=== PATIENT | female | born 1960 | race African-American/Black ===

== ENCOUNTER 2017-05-14 12:06 | Emergency (ER) | payer MEDICAID ==
[2017-05-14 12:14] VITALS: BMI 25.8
--- NOTE | 2017-05-14 12:41 | DR.DIZZY ---
HPI - Time seen Time seen: 12:40 - PCP Primary Care Physician: CECILIO - HPI Comment HPI Comment: GETTING WORSE. MISS PM MED LAST NIGHT. NO FEVER OR URI SYMTOMS. DIZZY ALSO. HAVING SEVERE HEADACHE. NO N/V. PATIENT IS HAVING SUBSTERNAL CHEST PRESURE THAT IS INTERMITTENT. NO WEAKNESS, - Complaint Chief Complaint Doctor Comments: ELEVATED BP, LEFT ARM NUMBNESS TIMES TWO DAY AND CHEST PAIN. Chief Complaint:: PT STATES SHE HAS BEEN HAVING LEFT ARM NUMBESS AND TIGLING FOR THE LAST 2 DAYS AND SLIGHT INTERMITTANT PAINS TO THE CHEST. Self Treatment fo Chief Complaint: PT DENIES ANY PAIN OR SOB AT THIS TIME, - Nurses Notes Reviewed Nurses Notes Review: Yes - Source History Provided: Patient - Mode of Arrival Mode of Arrival: Ambulatory - Timing Onset of Chief Complaint: 05/12/17 Came on: Suddenly - Duration Duration: Constant Duration: Days - Location of Weakness Weakness Location: Left, Arm - Context Onset: At rest Does pt take pot. toxic medication?: No History of: None Stroke Symptoms: Dizziness - Severity Severity: Normal activity level - Modifying factors Worsens: Nothing - Associated signs and symptoms Associated Signs and Symptoms: Numb PMH - PMH Past Medical History: Yes Past Medical History: Hypertension Past Medical History Comment: LUPUS Past Surgical History: Yes Surgical History: - Family History History of Family Medical Conditions: No - Social History Does patient currently use any type of tobacco product: No Have you used tobacco products in the last 12 months: No Type of Tobacco Use: None Does any household member use tobacco: No Alcohol Use: None Do you use any recreational Drugs:: No Lives With: Family Lives Where: Home - infectious screening In the last 2 months have you had wt loss of >10#?: NO Have you had fever, night sweats or hemotysis?: No Have you traveled outside the country in the last 6 months?: No Isolation: Standard ROS - Review of Systems Constitutional: No Symptoms Reported. negative: Chills, Fever, Weakness, Fatigue Eyes: No Symptoms Reported. negative: Eye Pain, Discharge ENTM: No Symptoms Reported. negative: Ear Pain, Nose Discharge, Nose Congestion , Throat Pain Respiratoy: Non-Productive Cough, Short of Breath. negative: Wheezing, Hemoptysis Cardiovascular: Chest Pain. negative: Edema Gastrointestinal/Abdominal: No Symptoms Reported Genitourinary: No Symptoms Reported Neurological: Headache, Numbness, Paresthesia, Dizziness. negative: Weakness Musculoskeletal: No Symptoms Reported Integumentary: No Symptoms Reported Hematologic/Lymphatic: No Symptoms Reported Endocrine: No Symptoms Reported All Other Systems: Reviewed and Negative PE - Vital Signs Vitals: Temperature 97.7 F Pulse Rate 80 Respiratory Rate 20 Blood Pressure [Left Arm] 145/70 Blood Pressure 182/84 O2 Sat by Pulse Oximetry 100 - General Limitations: No Limitations General Appearance: Alert - Head Head Exam: Normal Inspection - Eyes Eye exam: Normal Appearance, PERRL, EOMI. negative: Scleral Icterus, Conjunctival Injection Pupils: Regular, Round: Bilateral, Reactive: Bilateral Sclera/Conjunctival: Normal Inspection: Bilateral - ENT ENT Exam: Normal Oropharynx, Normal External Ear Exam, TM's Normal Bilaterally - Neck Neck Exam: Trachea Midline - Chest Chest Inspection: Symmetric Chest Wall Rise - Respiratory Respiratory Exam: Normal Lung Sounds Bilat Respiratory Exam: Bilateral Rhonchi, Lower Rhonchi - Cardiovascular Cardiovascular Exam: Regular Rate, Normal Rhythm, Normal Heart Sounds - Abdominal Exam Abdominal Exam: Normal Bowel Sounds, Soft. negative: Tenderness - Rectal Rectal Exam: Deferred - Extremeties Extremities Exam: Normal Inspection. negative: Tenderness, Edema, Joint Swelling, Calf Tenderness - Back Back Exam: Normal Inspection - Neurologic Neurological Exam: Alert, Oriented X3, CN II-XII Intact, Normal Gait, Reflexes Normal. negative: Motor Sensory Deficit Patient Oriented To: Person, Place, Time Speech: Fluid Speech Cranial Nerve Exam: EOM Function (II, III, IV, ): Normal, Facial Sensation (V) : Normal, Facial Palsy (VII): Normal, Gag reflex (XI): Normal, Spinal Accessory Function (XI): Normal, Tongue Deviation: Normal Cerebellar Function: Normal Gait Motor Strength - LUE: 5/5 Motor Strength - RUE: 5/5 Motor Strength - LLE: 5/5 Motor Strength - RLE: 5/5 Upper Motor Neuron Exam: Babinski Sign: Normal DTR: achilles tendon (L): 4+, achilles tendon (R): 4+, brachioradialis (L): 4+, brachioradialis (R): 4+, Patellar (L): 4+, patellar (R): 4+ - Psychiatric Psychiatric Exam: Normal Affect, Normal Mood - Skin Skin Exam: Normal Color [facility] - Differential Diagnosis Differential Diagnosis: CVA, Dysrhythmia, Electrolyte disorder, Myocardial Infarction, TIA Course - Treatment Treatment: SEE ORDERS. - Education/Counseling Education/Counseling: Patient, Education Educated On: Treatment, Diagnosis, Needs for Follow Up ROR - Labs Reviewed Laboratory Results Reviewed?: Yes Result Diagrams: 05/14/17 12:46 05/14/17 12:46 Laboratory: WBC 3.3 X10^3/uL (3.6-10.0) L 05/14/17 12:46 RBC 3.93 X10^6/uL (3.5-5.4) 05/14/17 12:46 Hgb 11.6 g/dL (12.0-16.0) L 05/14/17 12:46 Hct 34.7 % (36.0-47.0) L 05/14/17 12:46 MCV 88.4 fL (80.0-100.0) 05/14/17 12:46 MCH 29.5 pg (27.0-34.0) 05/14/17 12:46 MCHC 33.3 g/dL (33.0-35.0) 05/14/17 12:46 RDW 15.6 % (11.6-16.5) 05/14/17 12:46 Plt Count 158 X10^3/uL (150.0-450.0) 05/14/17 12:46 MPV 9.6 fL (7.4-11.0) 05/14/17 12:46 Neut % 49.8 % (42.0-75.0) 05/14/17 12:46 Lymph % 33.7 % (21.0-51.0) 05/14/17 12:46 [place] % 12.1 % (0.0-13.0) 05/14/17 12:46 Eos % 3.8 % (0.9-2.9) H 05/14/17 12:46 Baso % 0.6 % (0.2-1.0) 05/14/17 12:46 Neut # 1.7 x10^3/uL (2.2-4.8) L 05/14/17 12:46 Lymph # 1.1 X10^3/uL (1.3-2.9) L 05/14/17 12:46 [place] # 0.4 x10^3/uL (0.3-0.8) 05/14/17 12:46 Eos # 0.1 x10^3/uL (0.0-0.2) 05/14/17 12:46 Baso # 0.0 X10^3/uL (0.0-0.1) 05/14/17 12:46 Absolute Nucleated RBC 0.0 /100WBC 05/14/17 12:46 Sodium 136 mmol/L (136-145) 05/14/17 12:46 Corrected Sodium TNP 05/14/17 12:46 Potassium 3.6 mmol/L (3.5-5.1) 05/14/17 12:46 Chloride 103 mmol/L (98-107) 05/14/17 12:46 Carbon Dioxide 27.4 mmol/L (21-32) 05/14/17 12:46 BUN 11 mg/dL (7-18) 05/14/17 12:46 Creatinine 0.77 mg/dL (0.55-1.02) 05/14/17 12:46 Est GFR (MDRD) Af Amer > 60 (>60) 05/14/17 12:46 Est GFR (MDRD) Non-Af > 60 (>60) 05/14/17 12:46 Glucose 89 mg/dL (65-99) 05/14/17 12:46 Calcium 8.4 mg/dL (8.5-10.1) L 05/14/17 12:46 Corrected Calcium 9.3 mg/dL (8.5-10.1) 05/14/17 12:46 Total Bilirubin 0.30 mg/dL (0.2-1.0) 05/14/17 12:46 AST 15 Units/L (15-37) 05/14/17 12:46 ALT 14 Units/L (12-78) 05/14/17 12:46 Alkaline Phosphatase 100 Units/L (46-116) 05/14/17 12:46 Creatine Kinase 99 Units/L (26-192) 05/14/17 15:44 CK-MB (CK-2) < 1.0 ng/mL (0-4.0) 05/14/17 15:44 CK/CKMB % Calc 1.0 % (<4) 05/14/17 15:44 Troponin I 0.03 ng/mL (0-1.5) 05/14/17 15:44 Total Protein 8.7 g/dL (6.4-8.2) H 05/14/17 12:46 Albumin 2.9 g/dL (3.4-5.0) L 05/14/17 12:46 Globulin 5.8 g/dL (2.5-4.5) H 05/14/17 12:46 Albumin/Globulin Ratio 0.5 Ratio (1.1-2.1) L 05/14/17 12:46 - XRAY XRAY Interpreted by: Radiologist XRAY Findings: REPORT DISCUSS WITH PATIENT. - EKG Rhythm: NSR (EKG NOTED) - Diagnosis Discharge Problem: Left upper extremity numbness Chest pain Qualifiers: Chest pain type: precordial pain Qualified Code(s): R07.2 - Precordial pain Hypertension Qualifiers: Hypertension type: essential hypertension Qualified Code(s): I10 - Essential ( primary) hypertension - Discharge Plan Condition: Stable Prescriptions: Gabapentin [Neurontin Cap 100 mg] 100 mg PO BID #60 cap Meloxicam [Mobic Tab 15 mg] 15 mg PO DAILY #30 tab - Follow ups/Referrals Follow ups/Referrals: NFD,None [Primary Care Provider] - 3 days TIGRE MAGAÑA [STAFF PHYSICIAN] - 2 days - Instructions Instructions: Paresthesia, Hypertension, [id number], Chest Pain Observation Additional Instructions: RETURN TO ED IF WORSE.
[2017-05-14 12:58] LABS: BASOPHILS % (AUTO) 0.6 % (0.2-1.0); EOSINOPHILS # (AUTO) 0.1 x10^3/uL (0.0-0.2); EOSINOPHILS % (AUTO) 3.8 % (0.9-2.9); HEMATOCRIT 34.7 % (36.0-47.0); HEMOGLOBIN 11.6 g/dL (12.0-16.0); LYMPHOCYTES # (AUTO) 1.1 X10^3/uL (1.3-2.9); LYMPHOCYTES % (AUTO) 33.7 % (21.0-51.0); MEAN CORPUSCULAR HEMOGLOBIN 29.5 pg (27.0-34.0); MEAN CORPUSCULAR HGB CONC 33.3 g/dL (33.0-35.0); MEAN CORPUSCULAR VOLUME 88.4 fL (80.0-100.0); MEAN PLATELET VOLUME 9.6 fL (7.4-11.0); MONOCYTES # (AUTO) 0.4 x10^3/uL (0.3-0.8); MONOCYTES % (AUTO) 12.1 % (0.0-13.0); NEUTROPHILS # (AUTO) 1.7 x10^3/uL (2.2-4.8); NEUTROPHILS % (AUTO) 49.8 % (42.0-75.0); PLATELET COUNT 158 X10^3/uL (150.0-450.0); RED BLOOD COUNT 3.93 X10^6/uL (3.5-5.4); RED CELL DISTRIBUTION WIDTH 15.6 % (11.6-16.5); WHITE BLOOD COUNT 3.3 X10^3/uL (3.6-10.0)
[2017-05-14 13:20] LABS: BLOOD UREA NITROGEN 11 mg/dL (7-18); CALCIUM 8.4 mg/dL (8.5-10.1); CARBON DIOXIDE 27.4 mmol/L (21-32); CHLORIDE 103 mmol/L (98-107); CREATININE 0.77 mg/dL (0.55-1.02); SODIUM 136 mmol/L (136-145); TROPONIN I 0.03 ng/mL (0-1.5); eGFR BLACK RACES > 60 (>60); eGFR NON BLACK RACES > 60 (>60)
--- NOTE | 2017-05-14 13:20 | RAD ---
HISTORY: Chest pain. Study: AP portable chest Comparison: None Findings: Very minimal pulmonary vascular congestion is noted. Moderate to moderately severe cardiomegaly is p resent. No acute bony abnormalities are identified. A hair pin overlies the right side of the chest , most likely extrinsic to the patient. IMPRESSION: 1. Moderate to moderately severe cardiomegaly with very minimal pulmonary vascular congestion. Reported By:
[2017-05-14 13:22] LABS: ALANINE AMINOTRANSFERASE 14 Units/L (12-78); ALBUMIN 2.9 g/dL (3.4-5.0); ALKALINE PHOSPHATASE 100 Units/L (46-116); ASPARTATE AMINO TRANSFERASE 15 Units/L (15-37); COR CA(FOR HYPOALB) 9.3 mg/dL (8.5-10.1); CREATINE KINASE 100 Units/L (26-192); CREATINE KINASE MB < 1.0 ng/mL (0-4.0); TOTAL PROTEIN 8.7 g/dL (6.4-8.2)
--- NOTE | 2017-05-14 13:23 | CT ---
Indication: Mental status changes after head trauma. Exam: CT head without contrast. Technique: Routine transaxial images were obtained through the brain without contrast. Findings: The ventricles are normal. No intracranial hemorrhage or edema is seen. There is no extra-a xial fluid collection or mass. The midline structures are unremarkable. No fracture is seen. There is mucosal thickening throughout the ethmoid, maxillary and sphenoid sinuses. Impression: No acute intracranial abnormality seen . Chronic sinusitis. Reported By:
[2017-05-14] MEDS ORDERED: TORADOL 60 MG VIAL IM ONE (14:42)
[2017-05-14] MEDS ORDERED: TORADOL 60 MG VIAL ONE (14:43)
[2017-05-14] MEDS ORDERED: CATAPRES TAB 0.2 MG PO ONE (15:44)
[2017-05-14] MEDS ORDERED: CATAPRES TAB 0.2 MG ONE (15:50)
[2017-05-14 16:50] LABS: CREATINE KINASE 99 Units/L (26-192); CREATINE KINASE MB < 1.0 ng/mL (0-4.0); TROPONIN I 0.03 ng/mL (0-1.5)
[2017-05-14] MEDS ORDERED: NORVASC TAB 5 MG ONE (16:57)
[2017-05-14 16:59] VITALS: BP 145/70
[2017-05-14] MEDS ORDERED: NORVASC TAB 10 MG PO SCH (17:00)
== END 2017-05-14 17:14 | disposition home or self-care (01) ==
LOC: ER 12:21
DX: R07.2 Precordial pain (principal); R20.2 Paresthesia of skin; I10 Essential (primary) hypertension
CPT/HCPCS: 36415; 70450; 71045; 80053; 82550; 82553; 84484; 85025; 93005; 93010; 96372; 99282; 99283; J1885

== ENCOUNTER 2022-10-29 17:34 | Observation (INO) ==
--- NOTE | 2022-10-29 18:03 | DR.HTN ---
HPI Time Seen Time Seen by Provider: 10/29/22 17:59 Primary Care Physician Primary Care Physician: JOSE WILSON HPI Comment HPI Comment: PATIENT IS 61YR OLD FEMALE IN ER WITH DIZZINESS, NOT FEELING WELL. BP RUNNING HIGH. MEDS ADJUSTED BUT STILL RUNNING HIGH. TOOK HOME MEDICATIONS AND STILL HAVE ELEVATED BP. HAVING HEADACHE AND DIZZY. PCP ADJUSTED BP MEDICATIONS BUT HAVE NOT IMPROVE BP. Complaints Chief Complaint Doctors Comments: ELEVATED BP, HEADACHE AND DIZZY THAT IS WORSE TONIGHT. Chief Complaint:: PT STATES SHE HAS BEEN DIZZY , AND NOT FEELING WELL AND HE PCP HAS CHANGED HER B/P MEDS 2 WEEKS AGO AND IT STILL KEEPS GETTING HIGHER ,,BR 239/123 AT HOME ( PT TOOK HE BP MEDS THIS AM SHE IS NOT SURE OF THE NAME ).BR Self Treatment fo Chief Complaint: REGULAR MEDS COVID-19 Coronavirus risk:travel/contact w/high risk person: No Has patient experienced Coronavirus symptoms: No Reviewed Nurses Notes Reviewed: Yes Source History Provided: Patient Mode of Arrival Mode of Arrival: Ambulatory Timing Onset of Chief Complaint: 10/15/22 Context Treatment of HTN Prior to Arrival: Taking meds as prescribed Associated Signs and Symptoms HTN Associated Signs and Symptoms: Dizziness PMH PMH Past Medical History: Yes Past Medical History: Hypertension Past Medical History Comment: LUPUS , RA Past Surgical History: No Surgical History: Family History History of Family Medical Conditions: Yes Family Medical History: Diabetes Mellitus and Hypertension Family Medical History Comment: RENAL FAIURE Social History Does patient currently use any type of tobacco product: No Have you used tobacco products in the last 12 months: No Type of Tobacco Use: None Does any household member use tobacco: No Alcohol Use: Occasionally Do you use any recreational Drugs:: No Lives With: Alone Lives Where: Home Infectious screening In the last 2 months have you had wt loss of >10#?: NO Have you had fever, night sweats or hemotysis?: No Have you traveled outside the country in the last 6 months?: No Isolation: Standard ROS Review of Systems Constitutional: No Symptoms Reported and Fatigue; negative Fever Eyes: No Symptoms Reported; negative Blurred Vision ENTM: No Symptoms Reported; negative Nose Discharge or Nose Congestion Respiratoy: No Symptoms Reported; negative Moist Cough, Short of Breath or Wheezing Cardiovascular: No Symptoms Reported; negative Chest Pain or Edema Gastrointestinal/Abdominal: negative Abdominal Pain, Nausea or Vomiting Genitourinary: No Symptoms Reported; negative Dysuria Neurological: Headache and Dizziness Musculoskeletal: No Symptoms Reported; negative Muscle Pain Integumentary: No Symptoms Reported; negative Rash or Juandice Hematologic/Lymphatic: No Symptoms Reported; negative Easy Bruising Endocrine: No Symptoms Reported; negative Increased Thirst or Increased Urine Psychiatric: No Symptoms Reported All Other Systems: Reviewed and Negative PE Vital Signs Vitals: Vital Signs Temperature 97.8 F Temperature 98.6 F Pulse Rate 61 Pulse Rate 61 Pulse Rate 60 Pulse Rate 60 Pulse Rate 61 Pulse Rate 61 Pulse Rate 59 Pulse Rate 61 Pulse Rate 61 Pulse Rate 60 Pulse Rate 59 Pulse Rate 62 Pulse Rate 61 Pulse Rate 64 Pulse Rate 64 Pulse Rate 67 Pulse Rate 71 Pulse Rate 71 Pulse Rate 69 Pulse Rate 72 Respiratory Rate 18 Respiratory Rate 22 Blood Pressure [Left Arm] 177/84 Blood Pressure 171/90 Blood Pressure 182/83 Blood Pressure 177/84 Blood Pressure 176/84 Blood Pressure 177/84 Blood Pressure 187/88 Blood Pressure 170/78 Blood Pressure 188/79 Blood Pressure 165/77 Blood Pressure 179/79 Blood Pressure 165/78 Blood Pressure 166/80 Blood Pressure 176/79 Blood Pressure 167/81 Blood Pressure 167/81 Blood Pressure 178/85 Blood Pressure 178/85 Blood Pressure 174/84 Blood Pressure 203/90 Blood Pressure 204/84 Blood Pressure 180/70 Blood Pressure 189/84 Blood Pressure 190/66 Blood Pressure 198/87 Blood Pressure 213/92 Blood Pressure 187/87 Blood Pressure 183/85 Blood Pressure 200/87 Blood Pressure 167/81 Blood Pressure 169/76 Blood Pressure 185/87 Blood Pressure 198/93 O2 Sat by Pulse Oximetry 99 O2 Sat by Pulse Oximetry 84 O2 Sat by Pulse Oximetry 100 O2 Sat by Pulse Oximetry 100 O2 Sat by Pulse Oximetry 100 O2 Sat by Pulse Oximetry 100 O2 Sat by Pulse Oximetry 98 O2 Sat by Pulse Oximetry 98 O2 Sat by Pulse Oximetry 100 O2 Sat by Pulse Oximetry 99 O2 Sat by Pulse Oximetry 98 O2 Sat by Pulse Oximetry 99 O2 Sat by Pulse Oximetry 91 O2 Sat by Pulse Oximetry 94 O2 Sat by Pulse Oximetry 67 O2 Sat by Pulse Oximetry 100 O2 Sat by Pulse Oximetry 99 O2 Sat by Pulse Oximetry 99 O2 Sat by Pulse Oximetry 99 O2 Sat by Pulse Oximetry 100 O2 Sat by Pulse Oximetry 98 O2 Sat by Pulse Oximetry 100 General Limitations: No Limitations General Appearance: Alert and In No Apparent Distress Head Head Exam: Normal Inspection and Atraumatic Eyes Eye exam: Normal Appearance, PERRL and EOMI; negative Scleral Icterus or Conjunctival Injection Pupils: Regular, Round: Bilateral and Reactive: Bilateral Sclera/Conjunctival: Normal Inspection: Bilateral ENT ENT Exam: Normal Exam, Normal Oropharynx, Normal External Ear Exam and TM's Normal Bilaterally Neck Neck Exam: Normal Inspection and Trachea Midline; negative Tenderness Chest Chest Inspection: Normal Inspection and Symmetric Chest Wall Rise; negative Tenderness Respiratory Respiratory Exam: Normal Lung Sounds Bilat; negative Accessory Muscle Use, Chest Wall Tenderness or Respiratory Distress Respiratory Exam: Bilateral: Clear to Auscultation Cardiovascular Cardiovascular Exam: Regular Rate, Normal Rhythm and Normal Heart Sounds; ne gative Systolic Murmur or Diastolic Murmur Abdominal Exam Abdominal Exam: Normal Inspection, Normal Bowel Sounds and Soft; negative Tenderness Extremities Extremities Exam: Normal Inspection, Tenderness and Normal Capillary Refill; negative Edema Back Back Exam: Normal Inspection; negative (R) CVA Tenderness or (L) CVA Tenderness Neurologic Neurological Exam: Alert and Oriented X3; negative Motor Sensory Deficit Patient Oriented To: Person, Place and Time Speech: Fluid Speech Cranial Nerve Exam: EOM Function (II, III, IV, ): Normal, Facial Sensation (V): Normal, Facial Palsy (VII): Normal, Gag reflex (XI): Normal, Spinal A ccessory Function (XI): Normal and Tongue Deviation: Normal Motor Strength - LUE: 5/5 Motor Strength - RUE: 5/5 Motor Strength - LLE: 5/5 Motor Strength - RLE: 5/5 Upper Motor Neuron Exam: Babinski Sign: Normal Psychiatric Psychiatric Exam: Normal Affect Skin Skin Exam: Intact MDM Differential Diagnosis Differential Diagnosis: Hyertension, essential (HEADACHE, DIZZINESS.) COURSE Treatment Treatment: SEE ORDERS DONE WHILE PATIENT WAS IN ER. . SHE WAS GIVEN CLONIDINE 0.2MG PO, METOPROLOL 25MG PO AND HYDRALAZINE 25MG PO WHILE IN ER. LABS AND EKG REPORT DISCUSSED WITH PATIENT. BP STILL ELEVATED. SHE WAS ADMITTED TO HOSPITAL FOR FURTHER MANAGEMENT. Consultation Consultation Comments: DISCUSSED PATIENT WITH DR. PANTOJA. HE WILL ADMIT PATIENT. Education/Counseling Education/Counseling: Patient Educated On: Diagnosis ROR Labs Reviewed Laboratory Results Reviewed?: Yes Result Diagrams: 10/30/22 05:06 10/30/22 05:06 Laboratory: WBC 4.5 X10^3/uL (3.6-10.0) 10/29/22 18:25 RBC 4.02 X10^6/uL (3.5-5.4) 10/29/22 18:25 Hgb 12.3 g/dL (12.0-16.0) 10/29/22 18:25 Hct 36.6 % (36.0-47.0) 10/29/22 18: MCV 91.0 fL (80.0-100.0) 10/29/22 18:25 MCH 30.7 pg (27.0-34.0) 10/29/22 18: MCHC 33.7 g/dL (33.0-35.0) 10/29/22 18: RDW 14.8 % (11.6-16.5) 10/29/22 18: Plt Count 173 X10^3/uL (150.0-450.0) 10/29/22 18: MPV 9.3 fL (7.4-11.0) 10/29/22 18:25 Neut % (Auto) 63.5 % (42.0-75.0) 10/29/22 18:25 Lymph % (Auto) 24.1 % (21.0-51.0) 10/29/22 18:25 [place] % (Auto) 7.8 % (0.0-13.0) 10/29/22 18:25 Eos % (Auto) 3.8 % (0.9-2.9) H 10/29/22 18:25 Baso % (Auto) 0.8 % (0.2-1.0) 10/29/22 18:25 Neut # (Auto) 2.9 x10^3/uL (2.2-4.8) 10/29/22 18:25 Lymph # (Auto) 1.1 X10^3/uL (1.3-2.9) L 10/29/22 18:25 [place] # (Auto) 0.4 x10^3/uL (0.3-0.8) 10/29/22 18:25 Eos # (Auto) 0.2 x10^3/uL (0.0-0.2) 10/29/22 18:25 Baso # (Auto) 0.0 X10^3/uL (0.0-0.1) 10/29/22 18:25 Absolute Nucleated RBC 0.1 /100WBC 10/29/22 18:25 Sodium 141 mmol/L (136-145) 10/29/22 18:25 Corrected Sodium TNP 10/29/22 18:25 Potassium 3.6 mmol/L (3.5-5.1) 10/29/22 18:25 Chloride 103 mmol/L (98-107) 10/29/22 18:25 Carbon Dioxide 31.5 mmol/L (21-32) 10/29/22 18:25 BUN 18 mg/dL (7-18) 10/29/22 18:25 Creatinine 1.29 mg/dL (0.55-1.02) H 10/29/22 18:25 Est GFR (MDRD) Af Amer 54 (>60) L 10/29/22 18:25 Est GFR (MDRD) Non-Af 45 (>60) L 10/29/22 18:25 Glucose 86 mg/dL (65-99) 10/29/22 18:25 Calcium 9.1 mg/dL (8.5-10.1) 10/29/22 18:25 Corrected Calcium 10.0 mg/dL (8.5-10.1) 10/29/22 18:25 Total Bilirubin 0.20 mg/dL (0.2-1.0) 10/29/22 18:25 AST 16 Units/L (15-37) 10/29/22 18:25 ALT 13 Units/L (12-78) 10/29/22 18:25 Alkaline Phosphatase 110 Units/L (46-116) 10/29/22 18:25 Creatine Kinase 112 Units/L (26-192) 10/29/22 18:25 Troponin I High Sens 20.4 ng/L (4.0-60.0) 10/29/22 18:25 Total Protein 8.1 g/dL (6.4-8.2) 10/29/22 18:25 Albumin 2.9 g/dL (3.4-5.0) L 10/29/22 18:25 Globulin 5.2 g/dL (2.5-4.5) H 10/29/22 18:25 Albumin/Globulin Ratio 0.6 Ratio (1.1-2.1) L 10/29/22 18:25 Specimen Type Clean catch urine 10/29/22 18:30 Urine Color Yellow (YELLOW) 10/29/22 18:30 Urine Appearance Clear (CLEAR) 10/29/22 18:30 Urine pH 6.5 (5.0 - 8.0) 10/29/22 18:30 Ur Specific [place] 1.015 (1.000-1.030) 10/29/22 18:30 Urine Protein 4+ (NEGATIVE) 10/29/22 18:30 Urine Glucose (UA) Negative (NEGATIVE) 10/29/22 18:30 Urine Ketones Negative (NEGATIVE) 10/29/22 18:30 Urine Blood Negative (NEGATIVE) 10/29/22 18: Urine Nitrite Negative (NEGATIVE) 10/29/22 18: Urine Bilirubin Negative (NEGATIVE) 10/29/22 18:30 Urine Urobilinogen Normal (NORMAL) 10/29/22 18:30 Ur Leukocyte Esterase Negative (NEGATIVE) 10/29/22 18:30 Urine RBC None seen /HPF (0-3) 10/29/22 18:30 Urine WBC 0-2 /HPF (0-5) 10/29/22 18:30 Ur Squamous Epith Cells Rare /HPF (NEGATIVE) 10/29/22 18:30 Urine Bacteria Negative /HPF (NEGATIVE) 10/29/22 18:30 Hyaline Casts Rare /LPF (NEGATIVE) 10/29/22 18:30 Ur Culture Indicated? No/not indicated 10/29/22 18:30 Urine Opiates Screen Negative (NEG=<300) 10/29/22 18:30 Urine Methadone Screen Negative (NEG=<300) 10/29/22 18:30 Ur Barbiturates Screen Negative (NEG=<200) 10/29/22 18:30 Ur Phencyclidine Scrn Negative (NEG=<25) 10/29/22 18:30 Ur Amphetamines Screen Negative (NEG=<1000) 10/29/22 18:30 U Benzodiazepines Scrn Negative (NEG=<200) 10/29/22 18:30 Urine Cocaine Screen Negative (NEG=<300) 10/29/22 18:30 U Marijuana (THC) Screen Positive (NEG=<50) A 10/29/22 18:30 EKG Rate: 61 [place]: Normal Rhythm: NSR and PVCs Block: None Hypertrophy: None ST: Nonsp Opioid Opioid Risk Tool Total: 0 Total Score Risk Category: Low Risk Copyright: Chito GERMAN predicting aberrant behaviors Discharge Plan Diagnosis Discharge Problem: Hypertension, Dizziness, Headache Discharge Plan Patient Disposition: 09 ADMITTED INPATIENT Condition: Stable Orders to Discharge Patient Discharge Orders: Discharge (Routine); Ordered 10/30/22 Ordered By: Akira Pantoja
--- NOTE | 2022-10-29 18:32 | EKG ---
Test Reason : HTN Blood Pressure : */* mmHG Vent. Rate : 61 BPM Atrial Rate : 61 BPM P-R Int : 182 ms QRS Dur : 104 ms QT Int : 438 ms P-R-T Axes : 40 -24 79 degrees QTc Int : 440 ms Normal sinus rhythm Left ventricular hypertrophy with repolarization abnormality ( R in aVL , [place] product ) Abnormal ECG No previous ECGs available Confirmed by Hong Warren ([id number]) on 10/30/2022 7:56:11 AM Referred By: Confirmed By: Hong Warren
[2022-10-29 18:34] LABS: BASOPHILS % (AUTO) 0.8 % (0.2-1.0); EOSINOPHILS # (AUTO) 0.2 x10^3/uL (0.0-0.2); EOSINOPHILS % (AUTO) 3.8 % (0.9-2.9); HEMATOCRIT 36.6 % (36.0-47.0); HEMOGLOBIN 12.3 g/dL (12.0-16.0); LYMPHOCYTES # (AUTO) 1.1 X10^3/uL (1.3-2.9); LYMPHOCYTES % (AUTO) 24.1 % (21.0-51.0); MEAN CORPUSCULAR HEMOGLOBIN 30.7 pg (27.0-34.0); MEAN CORPUSCULAR HGB CONC 33.7 g/dL (33.0-35.0); MEAN PLATELET VOLUME 9.3 fL (7.4-11.0); MONOCYTES # (AUTO) 0.4 x10^3/uL (0.3-0.8); MONOCYTES % (AUTO) 7.8 % (0.0-13.0); NEUTROPHILS # (AUTO) 2.9 x10^3/uL (2.2-4.8); NEUTROPHILS % (AUTO) 63.5 % (42.0-75.0); PLATELET COUNT 173 X10^3/uL (150.0-450.0); RED BLOOD COUNT 4.02 X10^6/uL (3.5-5.4); RED CELL DISTRIBUTION WIDTH 14.8 % (11.6-16.5); WHITE BLOOD COUNT 4.5 X10^3/uL (3.6-10.0)
[2022-10-29 18:38] LABS: BILIRUBIN,URINE NEGATIVE (NEGATIVE); BLOOD/HEMOGLOBIN,URINE NEGATIVE (NEGATIVE); GLUCOSE, URINE NEGATIVE (NEGATIVE); KETONES,URINE NEGATIVE (NEGATIVE); LEUKOCYTE ESTERASE ,URINE NEGATIVE (NEGATIVE); NITRITES,URINE NEGATIVE (NEGATIVE); PH,URINE 6.5 (5.0 - 8.0); PROTEIN,URINE 4+ (NEGATIVE); UROBILINOGEN,URINE NORMAL (NORMAL)
[2022-10-29 18:44] LABS: APPEARANCE,URINE CLEAR (CLEAR); BACTERIA,URINE NEGATIVE /HPF (NEGATIVE); COLOR,URINE YELLOW (YELLOW); HYALINE CASTS, URINE RARE /LPF (NEGATIVE); RBC,URINE NONE SEEN /HPF (0-3); SQUAMOUS EPITHELIAL CELL,UR RARE /HPF (NEGATIVE)
[2022-10-29 18:51] LABS: ALANINE AMINOTRANSFERASE 13 Units/L (12-78); ALBUMIN 2.9 g/dL (3.4-5.0); ALKALINE PHOSPHATASE 110 Units/L (46-116); ASPARTATE AMINO TRANSFERASE 16 Units/L (15-37); BLOOD UREA NITROGEN 18 mg/dL (7-18); CALCIUM 9.1 mg/dL (8.5-10.1); CARBON DIOXIDE 31.5 mmol/L (21-32); CHLORIDE 103 mmol/L (98-107); CREATINE KINASE 112 Units/L (26-192); CREATININE 1.29 mg/dL (0.55-1.02); GLUCOSE 86 mg/dL (65-99); POTASSIUM 3.6 mmol/L (3.5-5.1); SODIUM 141 mmol/L (136-145); TOTAL PROTEIN 8.1 g/dL (6.4-8.2); eGFR NON BLACK RACES 45 (>60)
[2022-10-29] MEDS ORDERED: CATAPRES TAB 0.2 MG PO ONE (18:53)
[2022-10-29] MEDS ORDERED: CATAPRES TAB 0.2 MG ONE (18:53)
[2022-10-29] MEDS ORDERED: LOPRESSOR TAB 25 MG PO ONE (21:01)
[2022-10-29] MEDS ORDERED: APRESOLINE TAB 25 MG PO ONE (21:01)
[2022-10-29] MEDS ORDERED: LOPRESSOR TAB 25 MG ONE (21:03)
[2022-10-29] MEDS ORDERED: CATAPRES-TTS-2 TD ONE (21:52)
[2022-10-29] MEDS ORDERED: CATAPRES-TTS-2 TD SCH (22:00)
[2022-10-29 22:23] VITALS: RESP 18
[2022-10-29 23:14] VITALS: BMI 31.1
[2022-10-30 05:34] LABS: EOSINOPHILS # (AUTO) 0.2 x10^3/uL (0.0-0.2); EOSINOPHILS % (AUTO) 3.8 % (0.9-2.9); HEMATOCRIT 34.6 % (36.0-47.0); HEMOGLOBIN 11.7 g/dL (12.0-16.0); LYMPHOCYTES # (AUTO) 1.4 X10^3/uL (1.3-2.9); MEAN CORPUSCULAR HEMOGLOBIN 30.9 pg (27.0-34.0); MEAN CORPUSCULAR HGB CONC 33.9 g/dL (33.0-35.0); MEAN CORPUSCULAR VOLUME 91.1 fL (80.0-100.0); MEAN PLATELET VOLUME 9.6 fL (7.4-11.0); MONOCYTES # (AUTO) 0.5 x10^3/uL (0.3-0.8); MONOCYTES % (AUTO) 11.1 % (0.0-13.0); NEUTROPHILS # (AUTO) 2.1 x10^3/uL (2.2-4.8); NEUTROPHILS % (AUTO) 51.1 % (42.0-75.0); PLATELET COUNT 158 X10^3/uL (150.0-450.0); RED CELL DISTRIBUTION WIDTH 14.9 % (11.6-16.5); WHITE BLOOD COUNT 4.2 X10^3/uL (3.6-10.0)
[2022-10-30 05:54] LABS: ALANINE AMINOTRANSFERASE 11 Units/L (12-78); ALBUMIN 2.6 g/dL (3.4-5.0); ALKALINE PHOSPHATASE 99 Units/L (46-116); ASPARTATE AMINO TRANSFERASE 16 Units/L (15-37); BLOOD UREA NITROGEN 15 mg/dL (7-18); CALCIUM 8.8 mg/dL (8.5-10.1); CARBON DIOXIDE 30.1 mmol/L (21-32); CHLORIDE 104 mmol/L (98-107); COR CA(FOR HYPOALB) 9.9 mg/dL (8.5-10.1); CREATININE 1.16 mg/dL (0.55-1.02); GLUCOSE 93 mg/dL (65-99); MAGNESIUM 1.7 mg/dL (2.0-2.9); POTASSIUM 3.7 mmol/L (3.5-5.1); SODIUM 140 mmol/L (136-145); TOTAL PROTEIN 7.4 g/dL (6.4-8.2); eGFR NON BLACK RACES 51 (>60)
[2022-10-30] MEDS ORDERED: CONSULT PHARMACY - POTASSIUM & MAGNESIUM XX SCH (07:00)
[2022-10-30 08:05] VITALS: O2SAT 97
[2022-10-30] MEDS ORDERED: BENICAR PO SCH (09:00)
[2022-10-30] MEDS ORDERED: LOPRESSOR TAB 25 MG PO SCH (09:00)
[2022-10-30] MEDS ORDERED: OLMESARTAN HYDROCHLOROTHIAZIDE PO SCH (09:00)
[2022-10-30] MEDS ORDERED: K-DUR TAB 20 MEQ PO SCH (09:00)
[2022-10-30] MEDS ORDERED: HYDROCHLOROTHIAZIDE 12.5 MG CAP PO SCH (09:00)
[2022-10-30] MEDS: APRESOLINE TAB 25 MG PO SCH ×2 (09:18→13:16)
[2022-10-30] MEDS: MAGNESIUM SULFATE 1 GRAM/100 mL PREMIX 1 G/100 ML BAG IV SCH ×2 (09:25→10:30)
[2022-10-30] MEDS ORDERED: CATAPRES-TTS-3 TD SCH (10:00)
[2022-10-30 13:19] VITALS: BP 178/80; PULSE 59; TEMP 98.4
--- NOTE | 2022-10-30 19:24 | DR.CARTERS ---
Short Stay Summary - Admission Date Date of Admission: 10/29/22 - Discharge Date Discharge Date: 10/30/22 - Admission Diagnoses (1) Uncontrolled hypertension Status: Acute - Discharge Medications Discharge Medications: Home Medication List hydralazine 25 mg tablet 25 mg PO QID 10/29/22 [History] metoprolol tartrate 25 mg tablet 25 mg PO BID 10/29/22 [History] olmesartan 40 mg-hydrochlorothiazide 12.5 mg tablet (Benicar HCT) 1 tab PO DAILY 10/29/22 [History] clonidine 0.3 mg/24 hr weekly transdermal patch 1 ea TD Q7D #5 ea 10/30/22 [Rx] Prescriptions: Akira Najera [place] [facility] Course Hospital Course: IS A 61 YEAR OLD FEMALE. SHE IS A PATIENT OF [employer] [place]. SHE PRESENTED TO THE ER WITH COMPLAINTS OF DIZZINESS AND ELEVATED BLOOD PRESSURE. SHE REPORTS THAT HER PHYSICAIN CHANGES HER MEDICATION TWO WEEKS AGO, HOWEVER, BLOOD PRESSURE HAS CONTINUED TO BE ELEVATED. SHE IS CURRENTLY TAKING METOPROLOL 25MG BID, HYDRALAZINE 25MG QID, AND OLMESARTAN-HCTZ DAILY. HER PMH INCLUDES HTN, LUPUS, AND RHEUMATOID ARTHRITIS. ON ARRIVAL TO THE ER, HER VITALS WERE: 98.6-72-22-100%-198/93. LABS WERE OBTAINED. WBC 4.5, RBC 4.02, HGB 12.3, HCT 36.6, SODIUM 141, POTASSIUM 3.6, CHLORIDE 103, CARBON DIOXIDE 31.5, BUN 18, CREATININE 1.29, GLUCOSE 86, CALCIUM 9.1, AST 16, ALT 13, ALK PHOS 110, CREATINE KINASE 112, TROPONIN 20.4, TOTAL PROTEIN 8.1, ALBUMI 2.9, GLOBULIN 5.2. URINE DRUG SCREEN WAS POSITIVE FOR MARIJUANA. URINALYSIS WAS OBTAINED AND WAS UNRE MARKABLE. EKG WAS OBTAINED AND REVEALED: NORMAL SINUS RHYTHM WITH HR 61 BPM. IN THE ER, SHE WAS GIVEN CATAPRES 0.2MG PO X 1 DOSE, LOPRESSOR 25MG PO, AND HYDRALAZINE 25MG PO X 1 DOSE. HER BLOOD PRESSURE DECREASED TO 165/78. SHE WAS ADMITTED TO THE HOSPITAL OBSERVATION STATUS FOR FURTHER EVALUATION AND TREATMENT OF UNCONTROLLED HYPERTENSION. WE RESUMED HER HOME MEDICATIONS AND ALSO ADDED A CLONIDINE 0.2MG/HR TD PATCH. OTHERWISE, WE PLANNED TO FOLLOW UP WITH AM LABS AND CONTINUE TO MONITOR. ON THE MORNING FOLLOWING ADMISSION, PATIENT IS ALERT AND ORIENTED, LYING IN BED ON MORNING ROUNDS. SHE DENIES CURRENT COMPLAINTS. ON EXAMINATION, HEART IS REGULAR IN RATE AND RHYTHM. BILATERAL LUNGS ARE CLEAR TO AUSCULTATION. ABDOMEN IS ROUND, SOFT, AND NON-TENDER WITH NORMAL BOWEL SOUNDS NOTED IN ALL QUADRANTS. GOOD RANGE OF MOTION NOTED TO UPPER AND LOWER EXTREMITIES WITH NO EDEMA NOTED. HER VITALS THIS MORNING WERE: 98.6-66-18-97%-161/77. LABS WERE OBTAINED AND REMAINED STABLE. HER BLOOD PRESSURE HAS BEEN STABLE SINCE ADMISSION AND WAS EVEN 139/69 AT 0400. WE PLANNED FOR DISCHARGE. INSTRUCTIONS FOR MEDICATIONS AND FOLLOW-UP WERE DISCUSSED WITH PATIENT. SHE VERBALIZED UNDERSTANDING. SHE WAS INSTRUCTED TO CONTINUE HER CURRENT MEDICATIONS. WE WILL ALSO PRESCRIBE A CLONIDINE 0.3MG/HR TD PATCH TO BE CHANGED Q7D. SHE WAS INSTRUCTED TO FOLLOW-UP WITH HER PCP IN ONE WEEK. PATIENT WAS DISCHARGED HOME IN STABLE. CONDITION. TIME SPENT ON CLINICAL ASSESSMENT, REVIEWING LABS AND IMAGING, DECISION MAKING, DISCHARGE INSTRUCTIONS, PREPARING DISCHARGE PAPERS, AND DOCUMENTATION GREATER THAN 45 MINUTES. - Discharge Plan Disposition: 01 HOME, SELF-CARE Condition: Stable Prescriptions: clonidine 1 ea TD Q7D #5 ea - Follow up/Referrals Follow up/Referrals: karina Osborn [REFERRING] - 10/31/22 3:00 pm (Bring medications and discharge packet with you to your appointment) - Instructions Instructions: Hypertension, Adult, [id number]-Lyxh, Preventing Hypertension, Managing Your Hypertension Additional Instructions: DIET TOLERATED. ACTIVITY TOLERATED. Forms: Post Hospital Follow Up Care
== END 2022-10-30 13:20 | disposition home or self-care (01) ==
LOC: MED/SURG 17:34 → ER 17:34 → MED/SURG 22:52
PROVIDERS: ADMIT Internal Medicine; ATTEND Internal Medicine
DX: R42 Dizziness and giddiness; F12.90 Cannabis use, unspecified, uncomplicated; M06.9 Rheumatoid arthritis, unspecified; I10 Essential (primary) hypertension